=== PATIENT | male | born 1960 | race Caucasian/White ===

== ENCOUNTER 2023-09-26 12:18 | Inpatient (IN) | payer MEDICARE ==
[~2023-09-26] VITALS: Ht 170.2 cm; Wt 81.2 kg
[2023-09-26] MEDS ORDERED: IV NORMAL SALINE 1000 ML BAG IV ONE (12:30)
[2023-09-26] MEDS ORDERED: PANTOPRAZOLE SODIUM 40 MG VIAL IV ONE (12:30)
[2023-09-26 13:23] LABS: BASOPHILS # (AUTO) 0.1 K/UL (0.0-0.2); BASOPHILS % (AUTO) 0.4 % (0.0-2.0); DIFFERENTIAL COMMENT 1; HEMATOCRIT 33.5 % (36.7-47.1); MEAN CORPUSCULAR HEMOGLOBIN 30.7 uug (23.8-33.4); MEAN CORPUSCULAR HGB CONC 33 g/dL (32.5-36.3); MEAN CORPUSCULAR VOLUME 93.5 fL (73.0-96.2); MONOCYTES % (AUTO) 7.9 % (0.0-11.0); NEUTROPHILS # (AUTO) 21.6 K/uL (1.8-8.9); NEUTROPHILS % (AUTO) 87.7 % (38.5-71.5); PLATELET COUNT (AUTO) 398 K/uL (152-348); RED BLOOD CELL COUNT(AUTO) 3.58 MIL/uL (4.06-5.63); RED CELL DISTRIBUTION WIDTH 16.5 % (12.1-16.2); WHITE BLOOD COUNT (AUTO) 24.6 K/uL (3.6-10.2)
[2023-09-26 14:21] LABS: ALANINE AMINOTRANSFERASE 44 U/L (16-63); ALBUMIN 2.8 g/dL (3.4-5.0); ALKALINE PHOSPHATASE 79 U/L (50-136); ASPARTATE AMINOTRANSFERASE 23 U/L (15-37); BILIRUBIN,DIRECT 0.3 mg/dL (0.0-0.2); BILIRUBIN,TOTAL 0.9 mg/dL (0.2-1.0); CALCIUM 8.7 mg/dL (8.5-10.1); CARBON DIOXIDE 26 mmol/L (21-32); CHLORIDE 106 mmol/L (98-107); GLUCOSE 299 mg/dL (74-106); POTASSIUM 3.6 mmol/L (3.5-5.1); SODIUM SERUM 144 mmol/L (136-145); TOTAL PROTEIN, SERUM 5.8 g/dL (6.4-8.2)
[2023-09-26 14:31] LABS: UREA NITROGEN, BLOOD 106 mg/dL (7-18)
[2023-09-26] MEDS ORDERED: PANTOPRAZOLE SODIUM 40 MG VIAL ONE (14:47)
[2023-09-26] MEDS ORDERED: ACETAMINOPHEN 325 MG TABLET PO PRN (16:00)
[2023-09-26] MEDS ORDERED: MAGNESIUM HYDROXIDE 30 ML LIQUID UDC PO PRN (16:00)
[2023-09-26] MEDS ORDERED: ONDANSETRON 4 MG/2 ML VIAL IV PRN (16:00)
[2023-09-26] MEDS ORDERED: FLAS1KIT2 TP (17:23)
[2023-09-26] MEDS ORDERED: FLAS1EAC2 TP (17:23)
[2023-09-26 17:30] VITALS: BP 111/59; TEMP 97.7; O2SAT 100
[2023-09-26] MEDS: IV NS 1000 ML 1,000 ML IV SCH (18:39)
[2023-09-26] MEDS ORDERED: COLC0.6C PO (19:01)
[2023-09-26] MEDS ORDERED: PRED20TA PO (19:01)
[2023-09-26] MEDS ORDERED: LEVO75TA PO (19:01)
[2023-09-26] MEDS ORDERED: LIOT5TAB7 PO (19:01)
[2023-09-26] MEDS ORDERED: ROSU10TA2 PO (19:09)
[2023-09-26] MEDS ORDERED: DAPA10TA PO (19:09)
[2023-09-26] MEDS ORDERED: POTA10CA43 PO (19:09)
[2023-09-26] MEDS ORDERED: TAFA61CA (19:09)
[2023-09-26] MEDS ORDERED: TADA5TAB2 PO (19:09)
[2023-09-26] MEDS ORDERED: TORS20TA3 PO (19:09)
[2023-09-26] MEDS ORDERED: APIX5TAB4 PO (19:09)
[2023-09-26 20:32] VITALS: BP 126/51; TEMP 97.6; O2SAT 98
[2023-09-26] MEDS: PANTOPRAZOLE SODIUM 40 MG VIAL IV SCH (20:38)
[2023-09-27 00:53] VITALS: BP 107/54; TEMP 98.3; O2SAT 99
[2023-09-27] MEDS: IV NS 1000 ML 1,000 ML IV SCH (04:03)
[2023-09-27 04:46] VITALS: BP 102/52; TEMP 97.5; O2SAT 96
[2023-09-27 06:53] LABS: BASOPHILS % (AUTO) 0.1 % (0.0-2.0); EOSINOPHILS % (AUTO) 0.1 % (0.0-7.0); HEMATOCRIT 28.2 % (36.7-47.1); HEMOGLOBIN 9.4 g/dL (12.5-16.3); LYMPHOCYTES # (AUTO) 1.5 K/uL (0.8-4.8); LYMPHOCYTES % (AUTO) 12.6 % (20.5-51.5); MEAN CORPUSCULAR HEMOGLOBIN 31.3 uug (23.8-33.4); MEAN CORPUSCULAR HGB CONC 33 g/dL (32.5-36.3); MEAN CORPUSCULAR VOLUME 93.6 fL (73.0-96.2); MONOCYTES # (AUTO) 0.8 K/uL (0.1-1.30); MONOCYTES % (AUTO) 6.7 % (0.0-11.0); NEUTROPHILS # (AUTO) 9.8 K/uL (1.8-8.9); NEUTROPHILS % (AUTO) 80.5 % (38.5-71.5); PLATELET COUNT (AUTO) 228 K/uL (152-348); RED BLOOD CELL COUNT(AUTO) 3.02 MIL/uL (4.06-5.63); RED CELL DISTRIBUTION WIDTH 16.6 % (12.1-16.2); WHITE BLOOD COUNT (AUTO) 12.1 K/uL (3.6-10.2)
[2023-09-27 07:15] LABS: CALCIUM 8.2 mg/dL (8.5-10.1); CREATININE 1.6 mg/dL (0.6-1.3); MAGNESIUM 2.8 mg/dL (1.8-2.4); PHOSPHOROUS 3.4 mg/dL (2.5-4.9); POTASSIUM 3.3 mmol/L (3.5-5.1)
[2023-09-27 07:36] LABS: DIFFERENTIAL COMMENT 1
[2023-09-27] MEDS ORDERED: POTASSIUM CHLORIDE 20 MEQ TAB.PRT.SR PO ONE (07:45)
[2023-09-27] MEDS ORDERED: DOCOSANOL 2 GM CREAM TP SCH (08:00)
[2023-09-27] MEDS: PANTOPRAZOLE SODIUM 40 MG VIAL IV SCH ×2 (08:20→20:30)
[2023-09-27] MEDS: DOCOSANOL 2 GM CREAM TP PRN ×3 (08:21→23:12)
[2023-09-27 11:42] VITALS: BP 103/55; TEMP 97.9; O2SAT 99
[2023-09-27] MEDS: IV NS 1000 ML 1,000 ML IV PRN ×2 (12:31→23:13)
[2023-09-27 12:57] LABS: *CREATININE,URINE 38.5 mg/dL (30-125); *URINE TOTAL PROTEIN RANDOM 8.5 mg/dL (<150/24HR)
[2023-09-27 13:09] LABS: *BILIRUBIN,URIN NEGATIVE (NEGATIVE); *CLARITY,URINE CLEAR (CLEAR); *COLOR,URINE YELLOW (YELLOW); *KETONES,URINE NEGATIVE (NEGATIVE); *PROTEIN,URINE NEGATIVE (NEGATIVE); *UROBILINOGEN,URINE 0.2 E.U./dl (NORMAL); LEUKOCYTE ESTERASE ,URINE NEGATIVE (NEGATIVE); NITRITE, URINE NEGATIVE (NEGATIVE); PH,URINE 5.5 (5.0-8.0)
[2023-09-27 13:11] LABS: *BLOOD, URINE TRACE (NEGATIVE); UGLUCOSE 1+ (NEGATIVE)
[2023-09-27 13:22] LABS: RBC,URINE 0-3 /HPF (0-3); SQUAMOUS EPITHELIAL CELL,UR FEW /HPF (NONE SEEN); WBC,URINE 0-3 /HPF (0-3)
[2023-09-27] MEDS ORDERED: DEXTROSE 50% 50 ML DISP.SYRIN IV PRN (14:30)
[2023-09-27] MEDS ORDERED: INSULIN REGULAR, HUMAN 300 UNITS/3 ML VIAL SQ PRN (14:30)
[2023-09-27] MEDS ORDERED: INSULIN REGULAR, HUMAN 300 UNIT/3 ML VIAL SQ PRN (14:30)
[2023-09-27 15:42] VITALS: BP 91/51; TEMP 98.2; O2SAT 99
[2023-09-27] MEDS: BLOOD SUGAR DIAGNOSTIC 1 EACH STRIP VI SCH ×2 (16:29→20:53)
[2023-09-27] MEDS ORDERED: CYCL30DR OP (18:51)
[2023-09-27] MEDS ORDERED: VALS80TA2 PO (18:53)
[2023-09-27 20:00] VITALS: BP 93/50; TEMP 98.3; O2SAT 100
[2023-09-27 23:30] VITALS: BP 105/82; TEMP 98; O2SAT 100
[2023-09-28] MEDS ORDERED: DEXTROSE 50% 50 ML DISP.SYRIN IV PRN ×2 (02:00→16:00)
[2023-09-28] MEDS ORDERED: INSULIN REGULAR, HUMAN 300 UNIT/3 ML VIAL SQ PRN ×2 (02:00→16:00)
[2023-09-28 05:47] VITALS: BP 110/63; TEMP 98; O2SAT 100
[2023-09-28] MEDS: BLOOD SUGAR DIAGNOSTIC 1 EACH STRIP VI SCH ×4 (06:34→21:11)
[2023-09-28] MEDS: LEVOTHYROXINE SODIUM 75 MCG TABLET PO SCH (06:35)
[2023-09-28 06:52] LABS: BASOPHILS % (AUTO) 0.2 % (0.0-2.0); EOSINOPHILS # (AUTO) 0.1 K/uL (0.0-0.7); EOSINOPHILS % (AUTO) 0.9 % (0.0-7.0); HEMATOCRIT 25.7 % (36.7-47.1); HEMOGLOBIN 8.4 g/dL (12.5-16.3); LYMPHOCYTES # (AUTO) 1.3 K/uL (0.8-4.8); MEAN CORPUSCULAR HGB CONC 33 g/dL (32.5-36.3); MEAN CORPUSCULAR VOLUME 95.1 fL (73.0-96.2); MONOCYTES # (AUTO) 0.6 K/uL (0.1-1.30); MONOCYTES % (AUTO) 7.8 % (0.0-11.0); NEUTROPHILS # (AUTO) 5.3 K/uL (1.8-8.9); NEUTROPHILS % (AUTO) 73.1 % (38.5-71.5); PLATELET COUNT (AUTO) 197 K/uL (152-348); RED CELL DISTRIBUTION WIDTH 16.9 % (12.1-16.2); WHITE BLOOD COUNT (AUTO) 7.3 K/uL (3.6-10.2)
[2023-09-28 07:06] LABS: ALBUMIN 2.2 g/dL (3.4-5.0); BILIRUBIN,TOTAL 0.7 mg/dL (0.2-1.0); CALCIUM 7.9 mg/dL (8.5-10.1); CREATININE 1.1 mg/dL (0.6-1.3); MAGNESIUM 2.4 mg/dL (1.8-2.4); PHOSPHOROUS 2.1 mg/dL (2.5-4.9); POTASSIUM 3.7 mmol/L (3.5-5.1); TOTAL PROTEIN, SERUM 4.9 g/dL (6.4-8.2)
[2023-09-28 07:16] LABS: DIFFERENTIAL COMMENT 1
[2023-09-28] MEDS: IV 1/2NS 1000 ML 1,000 ML IV SCH ×2 (08:10→23:34)
[2023-09-28] MEDS: PANTOPRAZOLE SODIUM 40 MG VIAL IV SCH ×2 (08:29→20:52)
[2023-09-28] MEDS ORDERED: predniSONE 20 MG TABLET PO SCH (09:00)
[2023-09-28 09:52] VITALS: BP 102/61; TEMP 98.4
[2023-09-28 11:57] VITALS: BP 101/50; TEMP 97.5; O2SAT 100
[2023-09-28] MEDS: SUCRALFATE 1 G/10 ML LIQUID UDC PO SCH ×2 (15:38→20:52)
[2023-09-28] MEDS ORDERED: NEUTRA PHOS PACKET PO ONE (15:50)
[2023-09-28 15:58] VITALS: BP 118/63; TEMP 97.4; O2SAT 100
[2023-09-28] MEDS ORDERED: INSULIN REGULAR, HUMAN 300 UNITS/3 ML VIAL SQ PRN (16:00)
[2023-09-28] MEDS: COLCHICINE 0.6 MG TABLET PO SCH (16:24)
[2023-09-28] MEDS: DOCOSANOL 2 GM CREAM TP PRN (16:33)
[2023-09-28 20:00] VITALS: BP 101/57; TEMP 97.8; O2SAT 99
[2023-09-29] MEDS ORDERED: SUCRALFATE 1 G TABLET PO ONE (02:10)
[2023-09-29 04:00] VITALS: BP 111/62; TEMP 98; O2SAT 100
[2023-09-29 06:17] LABS: BASOPHILS % (AUTO) 0.3 % (0.0-2.0); EOSINOPHILS # (AUTO) 0.1 K/uL (0.0-0.7); EOSINOPHILS % (AUTO) 2.3 % (0.0-7.0); HEMATOCRIT 23.8 % (36.7-47.1); HEMOGLOBIN 7.8 g/dL (12.5-16.3); LYMPHOCYTES % (AUTO) 17.3 % (20.5-51.5); MEAN CORPUSCULAR HEMOGLOBIN 31.2 uug (23.8-33.4); MEAN CORPUSCULAR HGB CONC 33 g/dL (32.5-36.3); MEAN CORPUSCULAR VOLUME 95.4 fL (73.0-96.2); MONOCYTES # (AUTO) 0.4 K/uL (0.1-1.30); MONOCYTES % (AUTO) 7.2 % (0.0-11.0); NEUTROPHILS % (AUTO) 72.9 % (38.5-71.5); PLATELET COUNT (AUTO) 176 K/uL (152-348); RED CELL DISTRIBUTION WIDTH 16.6 % (12.1-16.2); WHITE BLOOD COUNT (AUTO) 5.5 K/uL (3.6-10.2)
[2023-09-29] MEDS: SUCRALFATE 1 G/10 ML LIQUID UDC PO SCH ×4 (06:42→21:08)
[2023-09-29] MEDS: LEVOTHYROXINE SODIUM 75 MCG TABLET PO SCH (06:43)
[2023-09-29] MEDS: BLOOD SUGAR DIAGNOSTIC 1 EACH STRIP VI SCH (06:43)
[2023-09-29 06:46] LABS: CALCIUM 7.6 mg/dL (8.5-10.1); PHOSPHOROUS 2.1 mg/dL (2.5-4.9)
[2023-09-29 06:47] LABS: DIFFERENTIAL COMMENT 1
[2023-09-29] MEDS ORDERED: IOHEXOL 350 100 ML INFUS..BTL ONE (07:59)
[2023-09-29] MEDS ORDERED: SWABABLE VALVE TRANSFER SET EA MC ONE (07:59)
[2023-09-29] MEDS ORDERED: IV NORMAL SALINE 250 ML IV ONE (08:00)
[2023-09-29 08:08] LABS: PTH, INTACT 34 pg/mL (15-65)
[2023-09-29] MEDS: COLCHICINE 0.6 MG TABLET PO SCH ×2 (10:00→16:50)
[2023-09-29] MEDS: PANTOPRAZOLE SODIUM 40 MG VIAL IV SCH (10:00)
[2023-09-29 10:11] LABS: A/G RATIO 1.1 (0.7-1.7); ALBUMIN 2.3 g/dL (2.9-4.4); ALPHA-1-GLOBULIN 0.2 g/dL (0.0-0.4); ALPHA-2-GLOBULIN 0.6 g/dL (0.4-1.0); BETA GLOBULIN 0.6 g/dL (0.7-1.3); GAMMA GLOBULIN 0.7 g/dL (0.4-1.8); GLOBULIN, TOTAL 2.1 g/dL (2.2-3.9); M-SPIKE Not Observed g/dL (Not Observed)
[2023-09-29] MEDS: IV 1/2NS 1000 ML 1,000 ML IV SCH (10:48)
[2023-09-29 11:05] VITALS: BP 118/58; TEMP 97.6; O2SAT 98
[2023-09-29] MEDS: DOCOSANOL 2 GM CREAM TP PRN (11:41)
[2023-09-29 12:30] LABS: IRON, SERUM 41 ug/dL (50-175)
[2023-09-29] MEDS ORDERED: PROPOFOL 200 MG/20 ML BOTTLE ONE (13:41)
[2023-09-29] MEDS ORDERED: NEUTRA PHOS PACKET PO ONE (15:15)
[2023-09-29 15:18] VITALS: BP 102/54; TEMP 98.4; O2SAT 98
[2023-09-29] MEDS: PANTOPRAZOLE SODIUM 40 MG TABLET.DR PO SCH (16:50)
[2023-09-29 20:00] VITALS: BP 96/54; TEMP 98.7; O2SAT 97
[2023-09-30 04:00] VITALS: BP 110/58; TEMP 98.6; O2SAT 98
[2023-09-30] MEDS: SUCRALFATE 1 G/10 ML LIQUID UDC PO SCH ×2 (06:34→11:35)
[2023-09-30] MEDS: PANTOPRAZOLE SODIUM 40 MG TABLET.DR PO SCH (06:34)
[2023-09-30] MEDS: LEVOTHYROXINE SODIUM 75 MCG TABLET PO SCH (06:34)
[2023-09-30 07:34] LABS: ALBUMIN 2.2 g/dL (3.4-5.0); BILIRUBIN,TOTAL 0.8 mg/dL (0.2-1.0); CALCIUM 7.9 mg/dL (8.5-10.1); MAGNESIUM 2.3 mg/dL (1.8-2.4); PHOSPHOROUS 2.1 mg/dL (2.5-4.9); POTASSIUM 3.7 mmol/L (3.5-5.1)
[2023-09-30 07:39] LABS: BASOPHILS % (AUTO) 0.5 % (0.0-2.0); DIFFERENTIAL COMMENT 0; EOSINOPHILS # (AUTO) 0.1 K/uL (0.0-0.7); EOSINOPHILS % (AUTO) 1.5 % (0.0-7.0); HEMATOCRIT 26.2 % (36.7-47.1); HEMOGLOBIN 8.6 g/dL (12.5-16.3); LYMPHOCYTES # (AUTO) 0.9 K/uL (0.8-4.8); LYMPHOCYTES % (AUTO) 12.5 % (20.5-51.5); MEAN CORPUSCULAR HEMOGLOBIN 31.5 uug (23.8-33.4); MEAN CORPUSCULAR HGB CONC 33 g/dL (32.5-36.3); MEAN CORPUSCULAR VOLUME 95.5 fL (73.0-96.2); MONOCYTES # (AUTO) 0.4 K/uL (0.1-1.30); MONOCYTES % (AUTO) 6.5 % (0.0-11.0); NEUTROPHILS # (AUTO) 5.4 K/uL (1.8-8.9); PLATELET COUNT (AUTO) 180 K/uL (152-348); RED BLOOD CELL COUNT(AUTO) 2.75 MIL/uL (4.06-5.63); RED CELL DISTRIBUTION WIDTH 16.9 % (12.1-16.2); WHITE BLOOD COUNT (AUTO) 6.8 K/uL (3.6-10.2)
[2023-09-30] MEDS: COLCHICINE 0.6 MG TABLET PO SCH (09:20)
[2023-09-30] MEDS ORDERED: NEUTRA PHOS PACKET PO ONE (13:00)
[2023-09-30] MEDS ORDERED: PANT40TA49 PO (14:22)
[2023-09-30] MEDS ORDERED: SUCR1ORA PO (14:22)
== END 2023-09-30 15:35 | disposition home or self-care (01) | DRG 377 ==
LOC: ER 12:18 → TELE3 17:21 → MEDSURG3 09-28 09:30
PROVIDERS: ADMIT Internal Medicine; ATTEND Internal Medicine
PROC: 0DB68ZX Excision of Stomach, Via Natural or Artificial Opening Endoscopic, Diagnostic (ICD-10-PCS; principal; 2023-09-28)
DX: K28.4 Chronic or unspecified gastrojejunal ulcer with hemorrhage (principal); N17.0 Acute kidney failure with tubular necrosis; E85.4 Organ-limited amyloidosis; E78.5 Hyperlipidemia, unspecified; Z79.01 Long term (current) use of anticoagulants; M10.9 Gout, unspecified; I48.0 Paroxysmal atrial fibrillation; N18.9 Chronic kidney disease, unspecified; Z98.84 Bariatric surgery status; E03.9 Hypothyroidism, unspecified; I12.9 Hypertensive chronic kidney disease with stage 1 through stage 4 chronic kidney disease, or unspecified chronic kidney disease; E11.22 Type 2 diabetes mellitus with diabetic chronic kidney disease; R55 Syncope and collapse; Z95.0 Presence of cardiac pacemaker; K57.90 Diverticulosis of intestine, part unspecified, without perforation or abscess without bleeding; E66.9 Obesity, unspecified; K80.20 Calculus of gallbladder without cholecystitis without obstruction; N28.1 Cyst of kidney, acquired; T38.0X5A Adverse effect of glucocorticoids and synthetic analogues, initial encounter; E11.65 Type 2 diabetes mellitus with hyperglycemia; D50.0 Iron deficiency anemia secondary to blood loss (chronic); D72.829 Elevated white blood cell count, unspecified; K29.71 Gastritis, unspecified, with bleeding; I77.810 Thoracic aortic ectasia; J32.9 Chronic sinusitis, unspecified
CPT/HCPCS: 36415; 70450; 71045; 76770; 82378; 83550; 83735; 83970; 84100; 84155; 84165; 84300; 84484; 85025; 85730; 86850; 86900; 86901; 93005; 93307; A4663; A6209; A6213; C9113; G0378; J1815; J3490; J7040; Q9967

== ENCOUNTER 2025-02-19 01:25 | Emergency (ER) | payer MEDICARE ==
[~2025-02-19] VITALS: Ht 170.2 cm; Wt 81.6 kg
[~2025-02-19 01:25] MED LIST: COLC0.6C PO; CYCL30DR OP; DAPA10TA PO; FLAS1EAC2 TP; FLAS1KIT2 TP; LEVO75TA PO; LIOT5TAB7 PO; PANT40TA49 PO; ROSU10TA2 PO; SUCR1ORA PO; TADA5TAB2 PO; TAFA61CA; TORS20TA3 PO
[2025-02-19 02:05] LABS: BASOPHILS % (AUTO) 0.4 % (0.0-2.0); CALCIUM 8.9 mg/dL (8.5-10.1); CREATININE 2.8 mg/dL (0.6-1.3); DIFFERENTIAL COMMENT 1; EOSINOPHILS % (AUTO) 0.1 % (0.0-7.0); HEMATOCRIT 40.3 % (36.7-47.1); HEMOGLOBIN 13.7 g/dL (12.5-16.3); LYMPHOCYTES # (AUTO) 0.1 K/uL (0.8-4.8); LYMPHOCYTES % (AUTO) 0.9 % (20.5-51.5); MEAN CORPUSCULAR HEMOGLOBIN 31.8 uug (23.8-33.4); MEAN CORPUSCULAR HGB CONC 34 g/dL (32.5-36.3); MEAN CORPUSCULAR VOLUME 93.9 fL (73.0-96.2); MONOCYTES # (AUTO) 0.3 K/uL (0.1-1.30); MONOCYTES % (AUTO) 3.4 % (0.0-11.0); NEUTROPHILS # (AUTO) 9.6 K/uL (1.8-8.9); NEUTROPHILS % (AUTO) 95.2 % (38.5-71.5); PLATELET COUNT (AUTO) 95 K/uL (152-348); POTASSIUM 3.1 mmol/L (3.5-5.1); RED CELL DISTRIBUTION WIDTH 14.9 % (12.1-16.2); WHITE BLOOD COUNT (AUTO) 10.1 K/uL (3.6-10.2)
[2025-02-19] MEDS: IV NORMAL SALINE 1000 ML BAG IV ONE (02:12)
[2025-02-19] MEDS ORDERED: ONDANSETRON 4 MG/2 ML VIAL ONE (02:14)
[2025-02-19] MEDS ORDERED: FENTANYL CITRATE 100 MCG/2 ML AMPUL ONE (02:14)
[2025-02-19] MEDS ORDERED: FAMOTIDINE. 20 MG/2 ML VIAL IV ONE (02:15)
[2025-02-19] MEDS: ONDANSETRON 4 MG/2 ML VIAL IV ONE (02:17)
[2025-02-19] MEDS: FAMOTIDINE. 20 MG/2 ML VIAL IV ONE (02:17)
[2025-02-19] MEDS: FENTANYL CITRATE 100 MCG/2 ML AMPUL IV ONE (02:17)
[2025-02-19 02:19] LABS: LACTIC ACID 2.9 mmol/L (0.4-2.0)
[2025-02-19 02:23] LABS: ALBUMIN 3.5 g/dL (3.4-5.0); BILIRUBIN,DIRECT 2.2 mg/dL (0.0-0.2); BILIRUBIN,TOTAL 3.1 mg/dL (0.2-1.0); TOTAL PROTEIN, SERUM 6.3 g/dL (6.4-8.2)
[2025-02-19] MEDS ORDERED: CYAN250014 PO (03:11)
[2025-02-19] MEDS ORDERED: TEST75GE10 TD (03:11)
[2025-02-19] MEDS ORDERED: ROSU20TA2 PO (03:11)
[2025-02-19] MEDS ORDERED: ALBU8.5H8 INH (03:11)
[2025-02-19] MEDS ORDERED: TORS20TA3 PO (03:11)
[2025-02-19] MEDS ORDERED: AMIO200T5 PO (03:11)
[2025-02-19] MEDS ORDERED: POTA10CA43 PO (03:11)
[2025-02-19] MEDS ORDERED: MULT-1045 PO (03:11)
[2025-02-19] MEDS ORDERED: APIX5TAB PO (03:11)
[2025-02-19] MEDS: IV NS 1000 ML 1,000 ML IV ONE (03:20)
[2025-02-19] MEDS: IV NORMAL SALINE 500 ML IV ONE (03:20)
[2025-02-19] MEDS ORDERED: CEFEPIME HCL 1 G VIAL ONE (03:21)
[2025-02-19] MEDS: CEFEPIME HCL 2 G in IV DEXTROSE 5% 100 ML IV ONE (03:21)
[2025-02-19 03:35] LABS: ANISOCYTOSIS 1+; LYMPHOCYTES % (MANUAL) 1 % (20-40); MONOCYTES % (MANUAL) 3 % (2-10); NEUTROPHILS % (MANUAL) 96 % (42-75); PLATELET ESTIMATE MODERATELY DECREASED
[2025-02-19] MEDS ORDERED: ONDANSETRON 4 MG/2 ML VIAL IV PRN (06:00)
[2025-02-19] MEDS ORDERED: IV NS 1000 ML 1,000 ML IV PRN (06:00)
[2025-02-19] MEDS ORDERED: REMEDY ESSENTIAL ZINC PASTE 113 GM TP PRN (06:00)
[2025-02-19] MEDS ORDERED: MORPHINE SULFATE 4 MG/1 ML DISP.SYRIN IV PRN (06:00)
[2025-02-19] MEDS ORDERED: PIPERACILLIN/TAZOBACTAM/D5W 50 ML IV ONE (06:08)
[2025-02-19] MEDS: PIPERACILLIN SODIUM/TAZOBACTAM 3.375 G in IV DEXTROSE 5% 50 ML IV SCH (06:09)
[2025-02-19 07:34] LABS: *BILIRUBIN,URIN NEGATIVE (NEGATIVE); *BLOOD, URINE NEGATIVE (NEGATIVE); *CLARITY,URINE CLEAR (CLEAR); *COLOR,URINE YELLOW (YELLOW); *KETONES,URINE NEGATIVE (NEGATIVE); *PROTEIN,URINE NEGATIVE (NEGATIVE); *UROBILINOGEN,URINE 0.2 E.U./dl (NORMAL); LEUKOCYTE ESTERASE ,URINE NEGATIVE (NEGATIVE); NITRITE, URINE NEGATIVE (NEGATIVE); UGLUCOSE 2+ (NEGATIVE)
[2025-02-19 07:49] LABS: BACTERIA,URINE FEW /HPF (NONE SEEN); URINE AMORPHOUS URATE FEW /HPF; WBC,URINE 0-3 /HPF (0-3)
[2025-02-19] MEDS: IV LACTATED RINGERS SOLUTION 1,000 ML BAG IV ONE (09:04)
[2025-02-19] MEDS ORDERED: MORPHINE SULFATE 2 MG/1 ML DISP.SYRIN ONE (09:05)
[2025-02-19] MEDS: MORPHINE SULFATE 2 MG/1 ML DISP.SYRIN IV ONE (09:08)
[2025-02-19] MEDS: PANTOPRAZOLE SODIUM 40 MG VIAL IV SCH (10:10)
[2025-02-19 11:00] VITALS: O2SAT 97
[2025-02-19] MEDS ORDERED: MISCELLANEOUS MED IV ONE (11:00)
== END 2025-02-19 11:35 | disposition short-term general hospital (02) ==
LOC: ER 01:25
DX: A41.9 Sepsis, unspecified organism (principal); R65.20 Severe sepsis without septic shock; K83.09 Other cholangitis; E11.9 Type 2 diabetes mellitus without complications; E86.0 Dehydration; E87.6 Hypokalemia; I50.9 Heart failure, unspecified; N17.9 Acute kidney failure, unspecified; R74.8 Abnormal levels of other serum enzymes; Z79.01 Long term (current) use of anticoagulants; Z79.621 Long term (current) use of calcineurin inhibitor; Z79.84 Long term (current) use of oral hypoglycemic drugs; Z79.899 Other long term (current) drug therapy; Z86.79 Personal history of other diseases of the circulatory system
CPT/HCPCS: 36415; 71045; 76705; 83605; 85025; 85730; 87040; 87086; 93307; A4606; A4663; J0692; J1308; J2270; J2405; J2543; J3010; J7040; J7120